=== PATIENT | female | born 1995 | race African-American/Black ===

== ENCOUNTER 2020-03-29 14:08 | Inpatient (IN) ==
[2020-03-29] MEDS ORDERED: MEPERIDINE 50 MG/1 ML VIAL IV PRN (14:19)
[2020-03-29] MEDS ORDERED: DINOPROSTONE VAG GEL 10 MG SYRINGE VAG ONE (14:21)
[2020-03-29 15:06] LABS: Basophils % 0.1 % (0.0-0.8); Eosinophils # 0.1 10*3/uL (0.0-0.87); Hematocrit 34.6 VOL% (35.7-47.0); Hemoglobin 10.9 GM/DL (12.0-16.0); Immature Granulocytes % 0.7 %; Immature Granulocytes Absolute 0.05 #; Lymphocytes # 1.8 10*3/uL (1.4-4.0); Lymphocytes % 26.1 % (21.3-54.2); Mean Corpuscular HGB Conc 31.5 GM/DL (32-36); Mean Platelet Volume 11.9 FL (9.6-12.0); Monocytes % 7.8 % (1.7-12.7); NRBC # 0.07 10*3/uL; Neutrophils % 64.3 % (38.7-73.9); Platelet Count 187 T/CUMM (130-400); Red Blood Count 4.22 MC/CUMM (3.8-5.5); Red Cell Distribution Width 23.1 % (9.3-17.3)
[2020-03-29 15:28] LABS: Bilirubin,Total 0.5 MG/DL (0.2-1.0); Calcium 8.7 MG/DL (8.5-10.1); Osmolality,Calculated 268.1 MOS/KG (273-304); Total Protein 7.2 G/DL (6.4-8.3)
[2020-03-30] MEDS ORDERED: AMPICILLIN INJ 2,000 MG in SODIUM CHLORIDE 0.9% 100 ML IV SCH (02:00)
[2020-03-30] MEDS ORDERED: OXYTOCIN/LR 20 UNIT/1,000 ML BAG IV SCH ×2 (02:00→03:00)
[2020-03-30] MEDS: LACTATED RINGERS 1,000 ML IV SCH ×2 (02:55→18:26)
[2020-03-30] MEDS: AMPICILLIN INJ 2,000 MG in SODIUM CHLORIDE 0.9% 100 ML IV SCH ×2 (02:56→07:33)
[2020-03-30] MEDS: BUTORPHANOL 2 MG/ML VIAL IV PRN ×2 (03:44→07:27)
[2020-03-30] MEDS: ONDANSETRON 4 MG/2 ML VIAL IV PRN ×2 (03:46→16:14)
[2020-03-30] MEDS ORDERED: AMPICILLIN INJ 1,000 MG in SODIUM CHLORIDE 0.9% 100 ML IV SCH (06:00)
[2020-03-30] MEDS: AMPICILLIN INJ 1,000 MG in SODIUM CHLORIDE 0.9% 100 ML IV SCH ×3 (07:10→18:24)
[2020-03-30] MEDS ORDERED: miSOPROStoL 200 MCG TABLET ONE (07:23)
[2020-03-30] MEDS ORDERED: TRANEXAMIC ACID 1,000 MG/10 ML VIAL ONE (07:23)
[2020-03-30] MEDS ORDERED: METHYLERGONOVINE 0.2 MG/1 ML AMP ONE (07:24)
[2020-03-30] MEDS ORDERED: CARBOPROST TROMETHAMINE 250 MCG/ML AMP IM ONE (07:24)
[2020-03-30] MEDS ORDERED: ePHEDrine 50 MG/ML VIAL IV PRN (09:50)
[2020-03-30] MEDS ORDERED: diphenhydrAMINE 50 MG/1 ML VIAL IV PRN ×2 (09:50)
[2020-03-30] MEDS ORDERED: CITRIC ACID/SODIUM CITRATE 30 ML UDCUP PO ONE (09:53)
[2020-03-30] MEDS ORDERED: FAMOTIDINE 20 MG/2 ML VIAL IV ONE (09:53)
[2020-03-30] MEDS ORDERED: CITRIC ACID/SODIUM CITRATE 30 ML UDCUP ONE (09:56)
[2020-03-30] MEDS ORDERED: fentaNYL 2 MCG/ROPIV 0.2% EPID 100 ML EPIDURAL SCH (10:00)
[2020-03-30 12:30] LABS: Apearance,Urine CLEAR (Clear); Bilirubin,Urine Negative (Negative); Blood, Urine Small mg/dL (Negative); Glucose,Urine (UA) Negative (Negative); Ketones,Urine 5 mg/dL (Negative); Mucus,Urine Occasional /LPF (Occasional); Nitrite,Urine Negative (Negative); Protein,Urine 30 MG/DL; RBC,Urine 3 /HPF (0-4); Squamous Epithelial Cell,Urine Occasional /HPF (0-10); Urine Color Yellow (Yellow); Urine Specific Gravity 1.024 (1.001-1.035); Urine Urobilinogen < 2.0 EU/DL (0.2-1.0); WBC,Urine 1 /HPF (0-6)
[2020-03-30 17:15] LABS: Cord Arterial Blood HCO3 21.7 MMOL/L
[2020-03-30 17:18] LABS: Cord Venous Blood PCO2 43.9 MMHG; Cord Venous Blood PO2 22.1 MMHG
[2020-03-30] MEDS ORDERED: HYDROCORTISONE 2.5% RECTAL CREAM 30 GM TUBE TOP PRN (20:15)
[2020-03-30] MEDS ORDERED: BISACODYL 10 MG SUPP RECTAL PRN (20:15)
[2020-03-30] MEDS ORDERED: BENZOCAINE 20%/MENTHOL 0.5% SPRAY 56 GM CAN TOP PRN (20:15)
[2020-03-30] MEDS ORDERED: OXYTOCIN/LR 20 UNIT/1,000 ML BAG IV ONE (20:15)
[2020-03-30] MEDS ORDERED: LANOLIN 50% CREAM 0.3 OZ TUBE TOP PRN (20:15)
[2020-03-30] MEDS ORDERED: ACETAMINOPHEN 325 MG TABLET PO PRN (20:15)
[2020-03-30] MEDS ORDERED: WITCH HAZEL PADS 100/JAR TOP PRN (20:15)
[2020-03-30] MEDS ORDERED: DIPH/TET/ACEL PERT BOOSTER VACCINE 0.5 ML VIAL IM ONE (20:15)
[2020-03-30] MEDS ORDERED: oxyCODONE/ACETAMINOPHEN 5-325 MG TABLET PO PRN (20:15)
[2020-03-30] MEDS ORDERED: MEASLES/MUMPS/RUBELLA VACCINE 0.5 ML VIAL SUBCUT ONE (20:15)
[2020-03-30] MEDS ORDERED: RHO(D) IMMUNE GLOBULIN 300 MCG SYRINGE IM ONE (20:15)
[2020-03-30] MEDS: oxyCODONE/ACETAMINOPHEN 5-325 MG TABLET PO PRN (20:27)
[2020-03-30] MEDS: IBUPROFEN 800 MG TABLET PO PRN (20:28)
[2020-03-30] MEDS: DOCUSATE SODIUM 100 MG CAPSULE PO SCH (20:32)
[2020-03-31] MEDS: oxyCODONE/ACETAMINOPHEN 5-325 MG TABLET PO PRN ×3 (02:02→22:16)
[2020-03-31] MEDS: IBUPROFEN 800 MG TABLET PO PRN ×3 (02:03→22:11)
[2020-03-31 06:06] LABS: Basophils % 0.2 % (0.0-0.8); Eosinophils # 0.1 10*3/uL (0.0-0.87); Eosinophils % 0.5 % (0.00-10.9); Hematocrit 31.8 VOL% (35.7-47.0); Hemoglobin 9.9 GM/DL (12.0-16.0); Immature Granulocytes % 0.6 %; Immature Granulocytes Absolute 0.07 #; Lymphocytes # 2.2 10*3/uL (1.4-4.0); Mean Corpuscular HGB Conc 31.1 GM/DL (32-36); Mean Platelet Volume 12.3 FL (9.6-12.0); Monocytes % 8.1 % (1.7-12.7); NRBC # 0.02 10*3/uL; Neutrophils % 72.6 % (38.7-73.9); Platelet Count 155 T/CUMM (130-400); Red Blood Count 3.88 MC/CUMM (3.8-5.5); Red Cell Distribution Width 22.8 % (9.3-17.3); White Blood Count 12.4 T/CUMM (4-12)
[2020-03-31 06:30] LABS: Hypochromasia 1+; Platelet Estimate Adequate
[2020-03-31] MEDS: DOCUSATE SODIUM 100 MG CAPSULE PO SCH ×2 (09:45→20:34)
[2020-03-31] MEDS ORDERED: MAGNESIUM HYDROXIDE SUSP 30 ML UDCUP PO PRN (09:48)
[2020-04-01] MEDS: DOCUSATE SODIUM 100 MG CAPSULE PO SCH (08:28)
[2020-04-01 11:26] VITALS: BP 131/87
== END 2020-04-01 13:40 | disposition home or self-care (01) | DRG 560 ==
LOC: N.LDOUT 14:08 → N.LD 14:13 → N.OB 03-30 20:15
PROVIDERS: ADMIT Obstetrics & Gynecology; ATTEND Obstetrics & Gynecology